=== PATIENT | male | born 1960 | race Caucasian/White ===

== ENCOUNTER 2017-07-16 05:47 | Day surgery (SDC) | payer OTHER ==
[2017-07-08 15:10] VITALS: BMI 28.0
[2017-07-16] MEDS ORDERED: Levofloxacin 500 mg/D5W 100 ml Premix Bag ONE (06:28)
[2017-07-16] MEDS ORDERED: Midazolam HCl 2 mg/2 ml Vial ONE (06:31)
[2017-07-16] MEDS ORDERED: Fentanyl 100 MCG/2 ML VIAL ONE (06:31)
[2017-07-16] MEDS ORDERED: Iothalamate Meglumine 60% 50 ML VIAL FS ONE (07:17)
[2017-07-16] MEDS ORDERED: Propofol 200 MG/20 ML VIAL ONE (07:36)
[2017-07-16] MEDS ORDERED: Succinylcholine Chloride 20 MG/ML 10 ml SYRINGE FS ONE (07:36)
[2017-07-16] MEDS ORDERED: Dexamethasone 20 MG/5 ML VIAL ONE (07:36)
[2017-07-16] MEDS ORDERED: Ondansetron HCl/PF 4 MG/2 ML Vial ONE (07:36)
[2017-07-16] MEDS ORDERED: Esmolol 100 MG/10 ML VIAL ONE (07:36)
[2017-07-16] MEDS ORDERED: Glycopyrrolate 0.2 MG/ML 5 ML SYRINGE ONE (07:36)
[2017-07-16] MEDS ORDERED: Lidocaine 1% PF 5 ML VIAL ONE (07:36)
--- NOTE | 2017-07-16 08:53 | RAD ---
KUB: Comparison: 07-16-17 History: Pre-operative radiograph. History of renal calcifications. FINDINGS: Single view of the abdomen shows a calcification in the right upper quadrant of the abdomen which juana messina represents a gallstone. An inferior vena cava filter is seen. There is a questionable calcifica tion to the left of the L4-5 disc space. This could represent the previously seen left ureteral calc ifications. There are no calcifications seen over the renal shadows. Post-surgical changes are seen in the lumbar spine and left hip. IMPRESSION: Possible visualization of the left ureteral calcification. POS: [facility]
[2017-07-16] MEDS ORDERED: Oxybutynin Chloride 5 MG TAB ONE (08:59)
[2017-07-16] MEDS ORDERED: Phenazopyridine HCl 97.5 MG TABLET ONE ×2 (08:59)
--- NOTE | 2017-07-16 09:34 | OP ---
DATE OF SERVICE: 07/16/2017 PREOPERATIVE DIAGNOSES: 1. Mr. Harvey is a 56-year-old male with history of left midureteral calculi at the level of L4, 7 mm. 2. Left punctate renal lithiasis x3. 3. Right renal lithiasis nonobstructing x2 lower pole punctate, right mid pole linear 3 mm stone, n onobstructive in nature. PROCEDURES: Cystoscopy, bilateral retrograde pyelogram, left ureteroscopy, balloon dilation of left distal ureter, flexible left ureteroscopy, pyeloscopy, laser lithotripsy of left mid ureteral calcu li, basket extraction of stone, 6 x 26 double-J ureteral stent placement with dangler taped to the p sulema. SPECIMEN: Left ureteral stone for chemical analysis. INTRAOPERATIVE FINDINGS: 1. Right retrograde pyelogram without evidence of hydronephrosis or filling defect, prompt excretio n of right collecting system contrast. 2. Left embedded mid ureteral calculi. 3. Minimal BPH. EBL: Minimal. COMPLICATIONS: None apparent. DISPOSITION: Recovery room in stable condition. INDICATIONS FOR THE PROCEDURE AND HISTORY: Mr. Harvey is a 56-year-old male with history of recur rent urolithiasis. I did receive the patient back in 2012 and underwent right ureteroscopy, laser l ithotripsy of a lower pole stone. He subsequently has done well, however, a subsequent workup demon strates left mid ureteral calculi with partial obstruction due to non-progression of stone, desires today for left ureteroscopy, laser lithotripsy. Alternative of the option was discussed with patien t including ESWL and desired to proceed. Moreover, he has a vague right flank pain which began a fe w days ago and a retrograde pyelogram bilaterally was advised. Risks and complications including, b ut not limited to, bleeding, pain, infection, injury to adjacent organs, urosepsis, ureteral renal i njury, stricture formation was reviewed with him in detail and all questions answered to his satisfa ction and he desired to proceed. DESCRIPTION OF THE PROCEDURE: After an informed consent is signed, the patient was taken to the ope rating room, placed in a dorsal lithotomy position with the genital area prepped and draped in the u sume surgical sterile fashion. The left mid ureteral stone was seen at the level of L4. We provide d bilateral PAULIE hose. SCDs and broad-spectrum antibiotics were provided. A 21 Eritrean cystoscope wa s utilized for cystoscopy which demonstrated normal anterior and posterior urethra, mild BPH compone nt nonobstructive in nature were noted. The bladder was entered. We performed a right retrograde p yelogram due to patient's right vague flank pain demonstrating no evidence of hydronephrosis or fill ing defect. There was prompt excretion of the right collecting system. At this time, we performed a left retrograde pyelogram with 1:1 diluted contrast with an open-ended catheter, which demonstrate d a filling defect radiopaque stone at the level of L4 with proximal hydronephrosis. There was some resistance passing the left ureteral guidewire with a 0.35 sensor wire. However, was able to be ne gotiated into the left upper pole. At this time, we proceeded to dilate his intramural ureter with [employer] 4 cm 12-Eritrean apparatus. With adequate pressure, we subsequently desufflated the balloon and a 10 Eritrean dual-lumen access sheath was utilized to pass a second wire into the left u pper pole without difficulty. At this time, an 11/13 x 36 cm navigator was passed to the level of t he stone with ease. The stone was directly visualized with a flexible digital ureteroscope. It moy eared to be embedded into the mucosa and we gently laser lithotripsy this stone rendering it free an d all stone fragments were laser lithotripsied and basket extracted with no further stone nidus appr eciated. There appeared to a wire that was initially placed appeared to demonstrate a component of small submucosal component. Therefore, I did pass my ureteroscope to the level of the renal pelvis and a new wire was placed into the left upper pole collecting system. We subsequently removed the n avigator and the second safety wire. A retrograde pyelogram was repeated demonstrating no evidence of extravasation of contrast. A 6 x 26 double-J ureteral stent was passed without difficulty with p melissa placement confirmed. The stent was left in dangler as there was endoscopic clearance of the s tone. He will follow up with me next for stent pull and dangler. Discharged with [place] 5/ 325 #50, Flomax #7, AZO p.r.n., Colace #30 p.r.n., ciprofloxacin for a course of 7 days, Ditropan 5 mg q.8 hours p.r.n. for bladder spasm.
--- NOTE | 2017-07-16 10:06 | RAD ---
RETROGRADE IVP: Comparison: 05-21-13, KUB 07-16-17 FINDINGS/IMPRESSION: Multiple images from a retrograde IVP were submitted for interpretation. The first image shows a pos sible calcification projecting over the left aspect of the L4-5 region of the lumbar spine. An infer ior vena cava filter is seen. Contrast was initially seen in the right renal collecting system witho ut filling defect and without hydronephrosis. Contrast eventually passed into the left renal collect ing system. There is moderate left hydronephrosis. A double J ureteral stent was eventually placed. The previously seen calcification on the initial image is not definitely seen on the lateral images. IMPRESSION: Status post lithotripsy with placement of left ureteral stent in good position. There is moderate le ft hydronephrosis. POS: [facility]
== END 2017-07-16 10:00 | disposition home or self-care (01) ==
LOC: SDC 05:47
PROVIDERS: ATTEND Urology
PROC: 0T768DZ Dilation of Right Ureter with Intraluminal Device, Via Natural or Artificial Opening Endoscopic (ICD-10-PCS; principal; 2017-07-16)
PROC: 0TF38ZZ Fragmentation in Right Kidney Pelvis, Via Natural or Artificial Opening Endoscopic (ICD-10-PCS; principal; 2017-07-16)
DX: N20.2 Calculus of kidney with calculus of ureter (principal); N40.0 Benign prostatic hyperplasia without lower urinary tract symptoms; Z88.0 Allergy status to penicillin; Z88.2 Allergy status to sulfonamides; Z79.899 Other long term (current) drug therapy; Z98.49 Cataract extraction status, unspecified eye; Z98.1 Arthrodesis status; Z98.890 Other specified postprocedural states; Z96.0 Presence of urogenital implants; Z96.649 Presence of unspecified artificial hip joint; Z87.891 Personal history of nicotine dependence; Z87.442 Personal history of urinary calculi; Z82.49 Family history of ischemic heart disease and other diseases of the circulatory system
CPT/HCPCS: 74000; 74420; 82365; 88300; C1758; C1769; J1100; J1956; J2001; J2250; J2405; J2704; J3010; Q9961

== ENCOUNTER 2017-12-15 10:03 | Outpatient (CLI) | payer OTHER ==
[2017-12-15 10:45] LABS: Bilirubin Negative (Negative); Blood, Urine Negative (Negative); Clarity CLEAR (Clear); Glucose, Urine (Dipstick) Negative (Negative); Leukocyte Trace (Negative); Nitrite Negative (Negative); Protein, Urine (Dipstick) Negative (Neg-Trace); Specific Gravity, Urine 1.022 (1.002-1.036); Urobilinogen 0.2 mg/dL (0.2-1.0); pH, Urine 5.5 (5.0-9.0)
[2017-12-15 10:47] LABS: Bacteria/HPF None Seen HPF (None Seen); Hyaline Casts/LPF 0-3 HYALINE CAST LPF (0-3 Hyaline); Pathc Cast-AUWi Flag 0.67 (0-2.49); RBC/HPF None Seen HPF (0-3); Squamous Epithelial None Seen HPF (0-3)
[2017-12-15 10:49] LABS: Anion Gap 11 mmol/L (10-20); BUN (Urea Nitrogen) 14 mg/dL (8.4-25.7); Calc. Creatinine Clearance 0 mL/min (70-130); Calcium 9.5 mg/dL (7.8-10.44); Carbon Dioxide 30 mmol/L (22-29); Chloride 104 mmol/L (98-107); Estimated GFR-MDRD Greater than 90; Glucose 121 mg/dL (70-105); Potassium 4.1 mmol/L (3.5-5.1); Sodium 141 mmol/L (136-145)
--- NOTE | 2017-12-15 13:10 | RAD ---
ABDOMEN 1 VIEW: Date: 12/15/17 HISTORY: Calculus of kidney. COMPARISON: Radiograph of 07/16/17. FINDINGS: IVC filter is in place. There are small calculi projecting over the right renal shadow at superior an d inferior poles. The previously noted calcification projecting over the left ureter is not appreciat ed on this examination. There is fusion hardware of the lumbar spine. Left hip arthroplasty. Right upper quadrant surgical clips. IMPRESSION: 1. Right-sided renal calculi and possible small left renal calculus. 2. Previously noted left ureteral calculus not appreciated on today's examination, likely post treat ment. 3. Small left renal calculi. POS: [facility]
--- NOTE | 2017-12-15 13:13 | ULT ---
ULTRASOUND BILATERAL RENAL STANDARD: Date: 12/15/17 HISTORY: Calculi. COMPARISON: Abdomen radiographs from same date. Renal ultrasound dated 03/13/17. FINDINGS: Right kidney measures 11.6 x 7.2 x 6.3 cm. Left kidney measures 11.9 x 7.3 x 5.9 cm. No hydronephrosi s. There is a small cyst superior pole right kidney which is exophytic measuring up to 1.1 cm. Small right-sided renal calculi. There are nonobstructive. Urinary bladder is unremarkable. Left kidney measures 11.9 x 5.9 x 7.3 cm with a cyst measuring up to 1.6 cm. IMPRESSION: 1. Small bilateral renal cysts. 2. Right-sided renal calculi. 3. No evidence of obstructive uropathy. POS: [facility]
== END 2017-12-15 10:04 | disposition home or self-care (01) ==
LOC: ULT 10:03
PROVIDERS: ATTEND Urology
DX: Z12.5 Encounter for screening for malignant neoplasm of prostate (principal); N20.0 Calculus of kidney; R35.0 Frequency of micturition; N28.1 Cyst of kidney, acquired
CPT/HCPCS: 74018; 76770; 80048; 81003; 81015; 87086; G0103

== ENCOUNTER 2018-12-15 12:23 | Outpatient (CLI) | payer OTHER ==
[2018-12-15 13:45] LABS: Mean Corpuscular HGB CONC 31.4 g/dL (32.0-36.0); Mean Corpuscular Volume 85.8 fL (78.0-98.0); Mean Platelet Volume 6.6 fL (7.4-10.4); Platelet Count 209 thou/uL (130-400); RBC Distribution Width 13.6 % (11.5-14.5); Red Blood Cell (RBC) Count 6.67 mill/uL (4.70-6.10); White Blood Cell (WBC) Count 11.6 thou/uL (4.8-10.8)
[2018-12-15 14:05] LABS: Bilirubin Small (Negative); Blood, Urine Negative (Negative); Clarity CLEAR (Clear); Glucose, Urine (Dipstick) Negative (Negative); Leukocyte Negative (Negative); Nitrite Negative (Negative); Protein, Urine (Dipstick) Negative (Neg-Trace); Specific Gravity, Urine 1.022 (1.002-1.036); Urobilinogen 0.2 mg/dL (0.2-1.0); pH, Urine 5.5 (5.0-9.0)
[2018-12-15 14:17] LABS: Anion Gap 15 mmol/L (10-20); BUN (Urea Nitrogen) 20 mg/dL (8.4-25.7); Calc. Creatinine Clearance 0 mL/min (70-130); Calcium 8.5 mg/dL (7.8-10.44); Carbon Dioxide 20 mmol/L (22-29); Chloride 103 mmol/L (98-107); Estimated GFR-MDRD 52; Glucose 83 mg/dL (70-105); Potassium 3.8 mmol/L (3.5-5.1); Sodium 134 mmol/L (136-145)
[2018-12-15 14:45] LABS: Bacteria/HPF None Seen HPF (None Seen); Pathc Cast-AUWi Flag 0.58 (0-2.49)
[2018-12-15 15:02] LABS: Hyaline Casts/LPF 0-3 HYALINE CAST LPF (0-3 Hyaline)
[2018-12-15 15:08] LABS: PTT 28.5 SEC (22.9-36.1); Prothrombin Time 13.2 SEC (12.0-14.7)
== END 2018-12-15 12:24 | disposition home or self-care (01) ==
LOC: LABBT 12:23
PROVIDERS: ATTEND Urology
DX: Z01.818 Encounter for other preprocedural examination (principal); N20.1 Calculus of ureter
CPT/HCPCS: 80048; 81001; 85027; 85610; 85730; 87086; 93005; 93010

== ENCOUNTER 2018-12-16 05:40 | Day surgery (SDC) | payer OTHER ==
[2018-12-15 12:58] VITALS: BMI 29.5
[2018-12-16] MEDS ORDERED: Levofloxacin 500 mg/D5W 100 ml Premix Bag ONE (06:14)
[2018-12-16] MEDS ORDERED: Iothalamate Meglumine 60% 50 ML VIAL FS ONE (07:12)
[2018-12-16] MEDS ORDERED: Fentanyl 100 MCG/2 ML VIAL ONE (07:12)
[2018-12-16] MEDS ORDERED: Phenazopyridine HCl 97.5 MG TABLET ONE (08:07)
--- NOTE | 2018-12-16 08:43 | OP ---
DATE OF PROCEDURE: 12/16/2018 PREOPERATIVE DIAGNOSES: 1. A 58-year-old male with history of recurrent kidney stone. 2. Right renal colic due to mid ureteral calculi, 6 mm at the level of mid SI joint. 3. Bilateral punctate renal lithiasis. POSTOPERATIVE DIAGNOSES: 1. A 58-year-old male with history of recurrent kidney stone. 2. Right renal colic due to mid ureteral calculi, 6 mm at the level of mid SI joint. 3. Bilateral punctate renal lithiasis. PROCEDURES PERFORMED: Cystoscopy, right retrograde, 6 x 26 double-J ureteral stent with distal tail in situ. ANESTHESIA: LMA. COMPLICATIONS: None apparent. INTRAOPERATIVE FINDINGS: 1. Moderate BPH with high median bar. No intravesical median lobe. 2. Obstructing right mid ureteral calculi. SPECIMEN: None. COMPLICATIONS: None. INDICATIONS FOR PROCEDURE AND HISTORY: Mr. Harvey is a 58-year-old male, with history of recurrent urolithiasis. Walk-in appointment provided was yesterday's presented to [facility] due to right flank pain, found to have 6 mm right mid ureteral calculi with hydronephrosis. The patient has had difficulty tolerating p.o. due to pain and nausea. Therefore, stent advised. His culture has not finalized, advised regarding stent placement, ureteroscopy, laser lithotripsy in a staged manner. Review of lab this morning demonstrates prelim urine culture at [facility] negative. However, he has had a low-grade fever last night of 100.1. Levaquin was provided by on-call service. Preoperative antibiotics provided. Risks and complications and indications for the procedure were reviewed with him in detail including, but not limited to, bleeding, pain, infection, injury to adjacent organs, urosepsis, stricture formation and expected secondary procedure was reviewed with the patient in detail and he desired to proceed. DESCRIPTION OF PROCEDURE: After an informed consent was signed, the patient was taken to the operating room, placed in a dorsal lithotomy position with the genital area prepped and draped in the usual surgical sterile fashion. Bilateral PAULIE hose SCDs and broad-spectrum antibiotics were provided. A 21-Nepalese cystoscope was utilized for cystoscopy, which demonstrated normal anterior and posterior urethra. Prostatic urethra demonstrated moderate BPH with lateral lobes co-opting with high median bar. Bladder was entered, which demonstrated no evidence of bladder calculi. The UOs were identified in normal orthotopic position. At this time, a 5-Nepalese open-ended catheter was utilized for retrograde pyelogram using 1:1 diluted contrast. A preoperative KUB demonstrated no obvious calcification. A retrograde pyelogram demonstrated obstructing ureteral stone at the mid SI joint. It was difficult to opacify the ureter proximal to this, however able to with subsequent injection of contrast. A 0.35 Sensor wire was negotiated into the right mid to upper pole. A 6 x 26 double-J ureteral stent was able to be passed without difficulty and he tolerated the procedure well. The patient is discharged with Flomax 0.4 mg, Colace p.r.n., Levaquin 500 mg one p.o. daily until repeat culture can be reviewed, AZO over the counter p.r.n. The patient does have prescription for narcotics at home, provided by the emergency room. He will see me this Friday for reassessment and planned ureteroscopy, laser lithotripsy next week pending review of urine culture. Job ID: [id number]
--- NOTE | 2018-12-16 09:09 | RAD ---
AP SUPINE ABDOMINAL RADIOGRAPH: DATE: 12/16/2018. HISTORY: Preoperative evaluation. COMPARISON: 12/15/2017. FINDINGS: IVC filter is again noted in place to the right of midline at the L1-2 level. Surgical clips overlie the right upper quadrant. There are intradiskal cage devices overlying the lumbosacral junction. P ostsurgical changes left hip are noted. There is a calcification overlying the right upper quadrant. The renal shadows are obscured, but thi s likely overlies the superior pole of the right kidney and likely attributable to a renal calculus. A punctate calcification overlies the expected location of the left renal shadow in similar position to prior study 1 day ago and also may represent a left ureteral calculus. Bowel gas pattern is nons pecific. There has been no other interval change. IMPRESSION: Right nephrolithiasis with questionable left nephrolithiasis. POS: [facility]
--- NOTE | 2018-12-16 09:13 | RAD ---
RETROGRADE UROGRAM: DATE: 12/16/2018. HISTORY: Right ureteral stent placement. COMPARISON: AP abdominal radiograph from 12/16/2018. FINDINGS: IVC filter is again noted in place with surgical clips overlying the right upper quadrant and postsur gical changes lower lumbar spine as well as postsurgical changes left hip. Again noted is calcification overlying the expected location of the right renal shadow likely related to a renal calculus. Initial image demonstrates a guidewire in place with contrast opacification of the mid right ureter. The final image demonstrates a double-pigtail right ureteral stent in place w ith the proximal portion overlying the expected location right renal collecting system and distal por tion overlying the urinary bladder. IMPRESSION: Right ureteral stent placement. Correlation with intraoperative findings is recommended. POS: [facility]
[2018-12-16] MEDS ORDERED: Ondansetron PF 4 MG/2 ML Vial ONE (11:20)
[2018-12-16] MEDS ORDERED: Rocuronium Bromide 10 MG/ML (10ML VIAL) ONE (11:20)
[2018-12-16] MEDS ORDERED: ePHEDrine 50 MG/ML VIAL ONE (11:20)
[2018-12-16] MEDS ORDERED: Lidocaine 1% PF 5 ML VIAL ONE (11:20)
[2018-12-16] MEDS ORDERED: Glycopyrrolate 0.2 MG/ML 5 ML SYRINGE ONE (11:20)
[2018-12-16] MEDS ORDERED: Dexamethasone 20 MG/5 ML VIAL ONE (11:20)
[2018-12-16] MEDS ORDERED: PROPOFOL 200 MG/20 ML VIAL ONE (11:20)
== END 2018-12-16 09:45 | disposition home or self-care (01) ==
LOC: SDC 05:40
PROVIDERS: ATTEND Urology
PROC: 0T768DZ Dilation of Right Ureter with Intraluminal Device, Via Natural or Artificial Opening Endoscopic (ICD-10-PCS; principal; 2018-12-16)
DX: N20.1 Calculus of ureter (principal); N40.0 Benign prostatic hyperplasia without lower urinary tract symptoms; Z90.49 Acquired absence of other specified parts of digestive tract; Z96.649 Presence of unspecified artificial hip joint; Z87.891 Personal history of nicotine dependence; Z88.0 Allergy status to penicillin; Z88.2 Allergy status to sulfonamides; Z88.5 Allergy status to narcotic agent; Z79.899 Other long term (current) drug therapy; Z98.890 Other specified postprocedural states
CPT/HCPCS: 74018; 74420; C1758; C1769; J1100; J1956; J2001; J2405; J2704; J3010; J3490; Q9961

== ENCOUNTER 2018-12-23 05:56 | Day surgery (SDC) | payer OTHER ==
[2018-12-22 11:12] VITALS: BMI 29.5
[2018-12-23] MEDS ORDERED: Levofloxacin 500 mg/D5W 100 ml Premix Bag ONE (06:26)
[2018-12-23] MEDS ORDERED: Iothalamate Meglumine 60% 50 ML VIAL FS ONE (06:45)
[2018-12-23] MEDS ORDERED: Famotidine/PF 20 mg/2ml Vial ONE (06:52)
[2018-12-23] MEDS ORDERED: Fentanyl 100 MCG/2 ML VIAL ONE ×3 (06:52→13:31)
[2018-12-23 07:10] LABS: #Eosinphils 0.2 thou/uL (0.0-0.7); #Lymphocytes 1.2 thou/uL (1.20-3.40); #Monocytes 0.8 thou/uL (0.11-0.59); #Neutrophils 7.8 thou/uL (1.40-6.50); %Basophils 0.2 % (0.0-1.0); %Eosinophils 2.2 % (0.0-10.0); %Lymphocytes 12.3 % (21.0-51.0); %Monocytes 8.3 % (0.0-10.0); Hemoglobin 19.4 g/dL (14.0-18.0); Mean Corpuscular HGB CONC 31.4 g/dL (32.0-36.0); Mean Corpuscular Hemoglobin 26.3 pg (27.0-31.0); Mean Corpuscular Volume 83.7 fL (78.0-98.0); Mean Platelet Volume 6.4 fL (7.4-10.4); Platelet Count 287 thou/uL (130-400); RBC Distribution Width 14.3 % (11.5-14.5); White Blood Cell (WBC) Count 10.1 thou/uL (4.8-10.8)
[2018-12-23 07:15] LABS: Anion Gap 13 mmol/L (10-20); BUN (Urea Nitrogen) 18 mg/dL (8.4-25.7); Calc. Creatinine Clearance 105 mL/min (70-130); Calcium 9.3 mg/dL (7.8-10.44); Carbon Dioxide 25 mmol/L (22-29); Chloride 104 mmol/L (98-107); Estimated GFR-MDRD 76; Glucose 92 mg/dL (70-105); Potassium 4.1 mmol/L (3.5-5.1); Sodium 138 mmol/L (136-145)
--- NOTE | 2018-12-23 07:44 | RAD ---
KUB: Date: 12/23/18 COMPARISON: 12/16/18. HISTORY: Preprocedure radiograph prior to cystography. FINDINGS: Single view of the abdomen shows a nonspecific, nonobstructive bowel gas pattern. A right-sided doubl e-J ureteral stent is seen in good position. An inferior vena cava filter is seen. Cholecystectomy cl ips are seen. There is a small calcification projecting over the right kidney measuring 4-5 mm in siz e. No calcifications project over the left kidney or along the stent. IMPRESSION: Right renal calcification. POS: [facility]
[2018-12-23] MEDS ORDERED: Oxybutynin 5 MG TAB ONE (09:54)
--- NOTE | 2018-12-23 09:54 | RAD ---
RETROGRADE IVP: Comparison: 12-16-18, KUB 12-23-18 FINDINGS/IMPRESSION: A single limited intraoperative view from retrograde IVP was submitted for interpretation. There is a right sided double J ureteral stent which appears in good position. The calcification seen on the KU B overlying the right renal shadow cannot be definitely seen. An inferior vena cava filter is seen. POS: [facility]
[2018-12-23] MEDS ORDERED: Phenazopyridine HCl 97.5 MG TABLET ONE (09:56)
--- NOTE | 2018-12-23 10:59 | OP ---
DATE OF PROCEDURE: 12/23/2018 PREOPERATIVE DIAGNOSES: 1. A 58-year-old male with history of recurrent kidney stone, presented with right intractable mid ureteral calculi, 6 mm at the mid SI joint. 2. Bilateral punctate renal lithiasis on CT scan from [facility]. 3. Recent KUB demonstrating right ureteral stent in good position with right upper pole 4 to 5 mm calcific density. POSTOPERATIVE DIAGNOSES: 1. A 58-year-old male with history of recurrent kidney stone, presented with right intractable mid ureteral calculi, 6 mm at the mid SI joint. 2. Bilateral punctate renal lithiasis on CT scan from [facility]. 3. Recent KUB demonstrating right ureteral stent in good position with right upper pole 4 to 5 mm calcific density. PROCEDURES PERFORMED: Cystoscopy, right retrograde pyelogram, 6 x 26 double-J ureteral stent exchange with distal tail in-situ, flexible and rigid ureteroscopy, pyeloscopy, laser lithotripsy of ureteral and renal stone, and basket extraction of stone fragments. ANESTHESIA: General. SPECIMEN: Stone for chemical analysis and gross. INTRAOPERATIVE FINDINGS: 1. Has previous moderate BPH with high median bar. No intravesical median lobe. 2. Right mid ureteral calculi obstructing impacted with mucosal overgrowth. 3. Right upper pole calyceal stone impacted. INDICATIONS FOR PROCEDURE AND HISTORY: Mr. Harvey is a 58-year-old male with history of recurrent kidney stone. He was provided a walk-in appointment as he presented to [facility] due to intractable right flank pain, found to have a 6 mm mid ureteral calculi with hydronephrosis. He underwent ureteral stent placement, and was observed that as he initially presented with history of fever. Final urine culture is negative. He has been on prophylactic antibiotic therapy and presents today for definitive ureteroscopy laser lithotripsy. He has been fully informed regarding risks and complications and indications for the procedure. Risks and complications including, but not limited to, bleeding, pain, infection, injury to adjacent organs, urosepsis, stricture formation, possible further surgery, PE, DVT, and perioperative morbidity. He presented with preop labs demonstrating elevated hematocrit. This is probably multifactorial as he has been on testosterone-Depo injection from an outlying clinic from a physician executive assistant to president. He states that this was for fatigue. However, preop labs demonstrated elevated H and H and I informed the patient regarding close followup with the provider that gave him his testosterone. I did recheck his H and H today demonstrating that it is further elevated due to further elevated hematocrit of 61 and his prior hematocrit was 57. Previously, his hematocrit was 44. I informed the patient regarding close monitoring of his H and H along with hormone profile labs as this is provided at outside facility. Recheck H and H intraoperatively was obtained after fluid resuscitation, as he has had decreased oral intake as well. He declines deferring surgery DESCRIPTION OF PROCEDURE: After an informed consent was signed, the patient was taken to the operating room, placed in dorsal lithotomy position with the genital area prepped and draped in the usual surgical sterile fashion. A 21-Macanese cystoscope was utilized for cystoscopy, which demonstrated normal anterior urethra. Again, noted is moderate BPH, bilobar hyperplasia with high median bar. The bladder was entered, which demonstrating AZO-Pyridium tinged urine. The previous ureteral stent was removed to the level of the meatus. The stent was removed at the level of the meatus. I tried to pass a 0.35 Sensor wire; however, I was only able to pass it beyond the proximal coil to the proximal ureter. There was some resistance removing the ureteral stent; however, it was removed complete. We tried to pass the wire up into the upper collecting system. However, there was some resistance at the UPJ level. Therefore, I did transition back to a rigid cystoscope and using an open-ended catheter, we fed the pre-existing wire to the level of the proximal ureter. I did feel the area of the stone that was impacted. However, I would pass the open-ended catheter to the level of the proximal ureter for retrograde pyelogram. There was some extravasation of contrast from the UPJ; however, I was able to subsequently negotiate the current wire safely into the renal pelvis. There was resistance; however, passed to the renal pelvis. We subsequently passed the wire into the right upper pole. We subsequently performed a retrograde pyelogram confirming proper placement of the wire in the renal collecting system. At this time, I transitioned to a rigid ureteroscope. The UO was passively dilated from having an indwelling ureteral stent and I was able to see the stone in the mid SI joint level stone. There was significant bullous edema surrounding the ureteral stone and it was impacted and adherent to the mucosa. Using 200 micron laser fiber, we laser lithotripsied the stone in this setting. We lasered the stone off the mucosa and render it free and subsequently lasered the stone complete and removed with basket extraction. There was a submucosal course of the wire. Therefore, we passed the ureteroscope into the true lumen and subsequently passed the wire to the level of the proximal ureter. At this time, I transitioned to a cystoscope. Then, using a cystoscope with an open-ended catheter, we placed this working wire through the true lumen into the right upper pole without difficulty at this time. I did perform a retrograde pyelogram confirming proper placement of the new working and safety wire. The prior wire was then subsequently removed. As he presents with history of right renal calculi as well, has had concern regarding possibly stone impacting the UPJ, flexible ureteroscope was performed. A second safety wire using a 10-Macanese dual-lumen access sheath was placed without difficulty. Retrograde pyelogram with a dual-lumen access sheath failed to demonstrate further extravasation of contrast. With the safety and working wire placed in-situ in proper position, we passed an 11/13-Macanese x 46 cm navigator without any issues to the level of the proximal ureter UPJ. I surveyed the UPJ, which demonstrated no evidence of mucosa defect per se. I did not see an obvious ureteral perforation of concern. At this time, the flexible ureteroscope was advanced and I did see the stone in the upper pole. I did not see any further stone nidus. The right upper pole stone appeared to be embedded in the calyx and this was rendered free, that was approximately 5 or 6 mm in size. I did laser the stone, rendered it free and basket extraction of the renal calculi was performed. What remained in-situ were dustlike stone debris, which he should pass without significant issues. I again surveyed the ureter, which demonstrated no evidence of ureteral mucosa, perforation or trauma of concern. Staging of the previous ureteral impacted stone site demonstrated bullous edema with no defect. A 6 x 26 double-J ureteral stent was replaced with distal tail in-situ. I did place a 16-Macanese Cintron catheter as he has been provided IV fluids aggressively as he appears to be dehydrated along with thrombocytosis present from hormone replacement. A recheck H and H intraoperatively demonstrated normalization of hematocrit to 51. Therefore, I will observe and caution the patient to follow up with his provider, providing him with testosterone injection. I do not recommend the testosterone for this patient. The patient was discharged with Levaquin 500 mg 1 p.o. b.i.d. for 5 days, then 1 p.o. a.m. of appointment January 07 for cysto stent pull. [employer] 5/325 #30 one to two p.o. q.6 to 8 hours p.r.n., Flomax #30, Colace b.i.d., and Pyridium 200 mg 1 p.o. q.8 hours p.r.n. for dysuria. Job ID: [id number] [facility]
[2018-12-23] MEDS ORDERED: Morphine 4 MG/ML VIAL ONE (13:26)
[2018-12-23] MEDS ORDERED: Metoclopramide HCl 10 MG/2 ML VIAL ONE (13:42)
[2018-12-23] MEDS ORDERED: Rocuronium Bromide 10 MG/ML (10ML VIAL) ONE (13:42)
[2018-12-23] MEDS ORDERED: Glycopyrrolate 0.2 MG/ML 5 ML SYRINGE ONE (13:42)
[2018-12-23] MEDS ORDERED: ePHEDrine 50 MG/ML VIAL ONE (13:42)
[2018-12-23] MEDS ORDERED: Ondansetron PF 4 MG/2 ML Vial ONE (13:42)
[2018-12-23] MEDS ORDERED: PROPOFOL 200 MG/20 ML VIAL ONE (13:42)
[2018-12-23] MEDS ORDERED: Lidocaine 1% PF 5 ML VIAL ONE (13:42)
[2018-12-23] MEDS ORDERED: PHENYLEPHRINE-NS 100 MCG/ML 10 ML SYRINGE ONE (13:42)
== END 2018-12-23 13:45 | disposition home or self-care (01) ==
LOC: SDC 05:56
PROVIDERS: ATTEND Urology
PROC: 0TF38ZZ Fragmentation in Right Kidney Pelvis, Via Natural or Artificial Opening Endoscopic (ICD-10-PCS; principal; 2018-12-23)
PROC: 0T768DZ Dilation of Right Ureter with Intraluminal Device, Via Natural or Artificial Opening Endoscopic (ICD-10-PCS; principal; 2018-12-23)
DX: N13.2 Hydronephrosis with renal and ureteral calculous obstruction (principal); N40.0 Benign prostatic hyperplasia without lower urinary tract symptoms; Z87.891 Personal history of nicotine dependence; Z88.0 Allergy status to penicillin; Z88.2 Allergy status to sulfonamides; Z88.5 Allergy status to narcotic agent; Z79.2 Long term (current) use of antibiotics; Z79.899 Other long term (current) drug therapy; Z98.890 Other specified postprocedural states
CPT/HCPCS: 36415; 74018; 74420; 80048; 82365; 85025; 88300; C1758; C1769; J0131; J1956; J2001; J2270; J2405; J2704; J2765; J3010; J3490; Q9961; S0028

== ENCOUNTER 2019-05-03 12:41 | Outpatient (CLI) | payer OTHER ==
--- NOTE | 2019-05-03 12:57 | RAD ---
XR Abdomen 1 View/KUB 2 views provided CLINICAL INDICATION: Urolithiasis, follow-up FINDINGS: Lung bases are clear. Prior calcification of the region of the right renal shadow, superiorly is not redemonstrated. There is punctate calcific dictation overlying the lower pole of the right renal shadow. Prior right ureteral catheter has been removed. IVC filter remains. There are metallic clips at the r ight upper quadrant. No acute osseous pathology. IMPRESSION: 1. Punctate calcific density overlying lower pole right renal shadow. 2. Interval removal of prior ureteral stent, on the right, with resolution of prior superior pole ca lculus.. Transcribed Date/Time: 05/03/2019 1:36 PM
--- NOTE | 2019-05-03 13:42 | ULT ---
RENAL ULTRASOUND: DATE: 05/03/2019 COMPARISON: 12/15/2017. HISTORY: Renal calculi, frequent micturition. TECHNIQUE: Multiplanar grayscale sonographic imaging of the kidneys and urinary bladder obtained. FINDINGS: The right kidney measures 11.8 cm in craniocaudal dimension and demonstrates a cortical thickness of approximately 1.6 cm. There is an 8 mm echogenic focus within the mid pole of the right kidney. This does not demonstrate significant shadowing and thus is a nonspecific finding. It could represent a small stone or a structure of fat echogenicity. There is a probable small cyst in the lower pole of the right kidney measuring in the 1.3 cm range. There is an exophytic cyst in the midpole of the r ight kidney measuring 1.2 cm. No solid renal mass noted on the right and no right-sided hydronephrosis. There is a 2.9 cm cyst in the upper pole the left kidney. Left kidney measures 10.8 cm in craniocauda l dimension. No discrete renal mass, stone, or hydronephrosis noted on the left. Prevoid urinary bladder volume is 155 mL and postvoid urinary bladder volume is 4 mL. Prostate gland is heterogeneous and measures approximately 4.6 x 4.0 x 4.0 cm. IMPRESSION: Renal ultrasound as detailed above. No hydronephrosis. Questionable stone midpole right kidney. Plephill hernandez see above discussion. Transcribed Date/Time: 05/03/2019 1:54 PM
== END 2019-05-03 12:42 | disposition home or self-care (01) ==
LOC: BICULT 12:41
PROVIDERS: ATTEND Urology
DX: N20.0 Calculus of kidney (principal); R35.0 Frequency of micturition; N28.89 Other specified disorders of kidney and ureter
CPT/HCPCS: 36415; 74018; 76770; 80048; 81001; 84270; 84403; 85014; 85018; G0103

== ENCOUNTER 2020-01-07 12:48 | Outpatient (CLI) | payer OTHER ==
--- NOTE | 2020-01-07 14:38 | MRI ---
MRI OF THE LEFT HIP WITHOUT CONTRAST: 01/07/20 HISTORY: Pain. Hip replacement. COMPARISON: Reference made to hip radiograph, 11/29/19. FINDINGS: BONES: Discectomy change at L5-S1. No hardware complication. No SI joint widening or significant SI joint ed griselda. There is no acute fracture or malalignment. The obturator rings are intact. Mild degenerative disease of each of the symphysis. There is a left hip arthroplasty in place with small adjacent fluid collection extending along the gr eater trochanter measuring 13 mm in transverse with AP dimension of 2.5 cm and craniocaudal length of 5 cm. TENDONS: Iliopsoas tendon is intact. The common hamstring and semimembranosus tendons are intact. Quadriceps t endons are intact. Evidence of chronic tearing of the left gluteus medius and minimus tendons from the greater trochante r. MUSCLES: The muscle signal and bulk is normal without significant atrophy on the right, though there is mild a trophy of the superior fibers of the left gluteus adam. There is also some mild interstitial atrop hy of the left gluteus medius and minimus muscles. INTRAPELVIC SOFT TISSUES: Relatively unremarkable. IMPRESSION: 1. Intact left hip arthroplasty with small fluid collection along the greater trochanter. 2. 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 3. Mild atrophy of the superior fibers of the gluteus adam muscle on the left. 4. No significant stress edema of the left acetabulum. POS: [facility]
== END 2020-01-07 12:49 | disposition home or self-care (01) ==
LOC: BICMRI 12:48 → TBSIIMAG 12:49
PROVIDERS: ATTEND Family Medicine
DX: M70.72 Other bursitis of hip, left hip (principal); M25.552 Pain in left hip; G89.4 Chronic pain syndrome; Z96.642 Presence of left artificial hip joint; S76.012A Strain of muscle, fascia and tendon of left hip, initial encounter; M62.552 Muscle wasting and atrophy, not elsewhere classified, left thigh

== ENCOUNTER 2020-04-19 14:44 | Outpatient (CLI) | payer OTHER ==
--- NOTE | 2020-04-19 15:27 | CT ---
CT abdomen and pelvis noncontrast HISTORY: Renal stone. Left flank pain. FINDINGS: There is moderate distention of the left renal collecting system and ureter to the level of an oval calculus in the mid ureter at the lumbosacral junction measuring up to 0.4 cm diameter by 0.6 cm length. The left ureter beyond this point is decompressed. There is subtle stranding within th e left retroperitoneal fat around the kidney and proximal ureter. At least 4 additional tiny calcifications are present within left renal collecting structures. The right renal collecting system and ureter are decompressed. At least 6 calcifications are present within the right renal calyces, measuring up to 0.5 cm greatest diameter. Postoperative changes of the lumbar spine and gallbladder fossa are apparent. IVC filter is in place. Lack of contrast limits evaluation of the soft tissues. Cystic lesions arise from the cortex of each kidney, measuring up to 2.2 cm greatest diameter at the lateral cortex of the left kidney. Scattered diverticula arise from the colon without adjacent inflammation. There are degenerative waterman ges of the lumbar spine. IMPRESSION : Partial obstruction at a 6 mm x 4 mm mid left ureteral calculus. Additional smaller nonobstructing bilateral renal calculi. Renal cysts. IVC filter. Diverticulosis. No evidence of diverticulitis.
== END 2020-04-19 14:45 | disposition home or self-care (01) ==
LOC: CT 14:44
PROVIDERS: ATTEND Urology
DX: N20.2 Calculus of kidney with calculus of ureter (principal); R10.9 Unspecified abdominal pain; N28.1 Cyst of kidney, acquired; K57.30 Diverticulosis of large intestine without perforation or abscess without bleeding
CPT/HCPCS: 36415; 74176; 80048; 81001; 87086

== ENCOUNTER 2020-04-20 10:28 | Outpatient (CLI) | payer OTHER ==
[2020-04-20 14:01] LABS: INR-International Normal Ratio 0.9; Prothrombin Time 12.6 sec (12.0-14.7)
[2020-04-20 14:02] LABS: PTT 27.5 sec (22.9-36.1)
[2020-04-20 14:20] LABS: #Eosinphils 0.1 thou/uL (0.0-0.7); #Monocytes 0.3 thou/uL (0.11-0.59); #Neutrophils 4.6 thou/uL (1.40-6.50); %Basophils 0.4 % (0.0-1.0); %Lymphocytes 16.2 % (21.0-51.0); %Monocytes 5.2 % (0.0-10.0); %Neutrophils 77.2 % (42.0-75.0); Hemoglobin 16.4 g/dL (14.0-18.0); Mean Corpuscular HGB CONC 32.8 g/dL (32.0-36.0); Mean Corpuscular Hemoglobin 28.7 pg (27.0-31.0); Mean Corpuscular Volume 87.5 fL (78.0-98.0); Mean Platelet Volume 7.1 fL (7.4-10.4); Platelet Count 229 thou/uL (130-400); RBC Distribution Width 13.5 % (11.5-14.5); Red Blood Cell (RBC) Count 5.73 mill/uL (4.70-6.10)
[2020-04-21 16:07] LABS: SARS-CoV-2 MS2 Positive; SARS-CoV-2 N Gene Negative; SARS-CoV-2 S Gene Negative; SARS-CoV-2 orf1ab Negative
--- NOTE | 2020-04-24 10:10 | EKG ---
Test Reason : FOR 04/24 Blood Pressure : / mmHG Vent. Rate : 098 BPM Atrial Rate : 098 BPM P-R Int : 146 ms QRS Dur : 090 ms QT Int : 342 ms P-R-T Axes : 070 066 034 degrees QTc Int : 436 ms Normal sinus rhythm Normal ECG When compared with ECG of 15-DEC-2018 13:22, T wave inversion less evident in Inferior leads Confirmed by ALEX DOWNS (2) on 04/24/2020 10:10:33 AM Referred By: MARCO Confirmed By:ALEX DOWNS
== END 2020-04-20 10:29 | disposition home or self-care (01) ==
LOC: LABBT 10:28
PROVIDERS: ATTEND Urology
DX: Z01.818 Encounter for other preprocedural examination (principal); Z11.59 Encounter for screening for other viral diseases; Z12.5 Encounter for screening for malignant neoplasm of prostate; N20.0 Calculus of kidney; N40.1 Benign prostatic hyperplasia with lower urinary tract symptoms; R35.0 Frequency of micturition; R10.9 Unspecified abdominal pain
CPT/HCPCS: 85025; 85610; 85730; 87635; 93005; 93010; U0003

== ENCOUNTER 2020-04-24 05:54 | Day surgery (SDC) | payer OTHER ==
[2020-04-20 12:34] VITALS: BMI 28.3
[2020-04-24] MEDS ORDERED: Iopamidol 50 ML FS ONE (07:12)
[2020-04-24] MEDS ORDERED: Levofloxacin 500 mg/D5W 100 ml Premix Bag ONE (07:23)
--- NOTE | 2020-04-24 07:33 | RAD ---
Abdomen one view HISTORY: Ureteral calculus. COMPARISON: CT 04/19/2020. FINDINGS: Visualized bowel gas pattern is nonspecific. Small calcifications project over each renal shadow, cor relating with recent CT exam. The lumbosacral junction, where left ureteral calculus was seen on the prior study, no left retroperi toneal calcification is evident. A small lobular vertically oriented calcification now projects over the left lower sacrum, at the expected location of the distal left ureter. Postoperative changes of the right upper quadrant, lower lumbar spine, and left hip are again demonst rated. Metallic filter overlies the inferior vena cava. IMPRESSION : Left ureteral calculus has descended to the level of the left lower sacrum. Bilateral renal calculi.
[2020-04-24] MEDS ORDERED: Fentanyl 100 MCG/2 ML VIAL ONE (08:45)
[2020-04-24] MEDS ORDERED: Lidocaine 2% Jelly 5 ML TUBE ONE (08:45)
--- NOTE | 2020-04-24 09:53 | RAD ---
Exam: Intraprocedure fluoroscopy for retrograde IVP. Stent placement. COMPARISON: 12/23/2018 FINDINGS: Intraprocedure fluoroscopy was provided for Dr. Radha lou. A total of 8 images demonstrate retrograde opacification of the left and right ureter and intrarenal collecting system. A double pigtail left ureteral stent is placed. Incidental IVC filter and metallic cage at the lumbosacral celia ction is noted Impression: Intraprocedure fluoroscopy as above.
[2020-04-24] MEDS ORDERED: Phenazopyridine HCl 97.5 MG TABLET ONE ×2 (10:17→10:18)
[2020-04-24] MEDS ORDERED: Oxybutynin 5 MG TAB ONE (10:18)
--- NOTE | 2020-04-24 10:34 | OP ---
DATE OF PROCEDURE: 04/24/2020 PREOPERATIVE DIAGNOSES: 1. A 59-year-old male with recurrent kidney stone, presents with left distal ureteral calculi with non-progression measuring 6 mm. 2. Nonobstructing punctate renal lithiasis x4. 3. Multiple right nonobstructing renal lithiasis: About 4 to 5 punctate, largest in the right kidney about 5 mm. POSTOPERATIVE DIAGNOSES: 1. A 59-year-old male with recurrent kidney stone, presents with left distal ureteral calculi with non-progression measuring 6 mm. 2. Nonobstructing punctate renal lithiasis x4. 3. Multiple right nonobstructing renal lithiasis: About 4 to 5 punctate, largest in the right kidney about 5 mm. PROCEDURES PERFORMED: Cystoscopy, bilateral retrograde pyelogram, left 6 x 26 double-J ureteral stent on Dangler, rigid ureteroscopy, laser lithotripsy, basket extraction of stone debris. ANESTHESIA: General. COMPLICATIONS: None apparent. DISPOSITION: To recovery room in stable condition. SPECIMEN: Stone for chemical analysis. INDICATIONS FOR PROCEDURE AND HISTORY: Mr. Harvey is a pleasant 59-year-old male, well known to me with history of recurrent kidney stone. He had an annual visit with me scheduled for April, however, provided a work-in appointment and he presented with hematuria and left flank pain. CT demonstrated a 6-mm left midureteral calculi with hydronephrosis and desires to proceed with ureteroscopy and laser lithotripsy. Morning of the surgery, he relates that he has vague right flank pain as well, therefore I advised regarding bilateral retrograde pyelogram and addressing right ureter if evidence of obstructing stone. We will proceed with treating his left ureteral stone as planned. On KUB this morning, there is some distal progression of the stone to the level of the mid sacrum. He has persistent discomfort. Risks and complications of the procedure were reviewed including, but not limited to, bleeding, pain, infection, injury to adjacent organs, urosepsis, ureteral stricture formation was discussed with him in detail and he desires to proceed. DESCRIPTION OF PROCEDURE: After an informed consent was signed, the patient was taken to the operating room, placed in a dorsal lithotomy position with the genital area prepped and draped in the usual surgical sterile fashion. Bilateral PAULIE hose, SCDs, and broad-spectrum antibiotics were provided. At this time, a cystoscope was passed, which demonstrated as previous bilobar hyperplasia of the prostate moderately obstructing with no evidence of intravesical median lobe. The UOs are about 3 to 4 mm proximal to the bladder neck with no evidence of bladder calculi. There was no evidence of intravesical median lobe. At this time, we performed a right retrograde pyelogram intubating the right UO with a 5-Libyan open-ended catheter, which demonstrated no evidence of ureteral filling defect, hydronephrosis. There was prompt excretion of contrast noted from the right side. Fluoroscopy as well as preop KUB demonstrated multiple calcific density consistent with his recent CAT scan. We then paid our attention to the left ureter, injecting contrast into the left kidney as the stone was difficult to visualize on fluoroscopy. There was a filling defect consistent with an obstructing stone as contrast was somewhat difficult to opacify proximal to the ureteral calculi. A 0.035 Sensor wire was passed to the left upper pole without significant issues and a rigid ureteroscope was passed without resistance. Stone was easily engaged and using 273 micron laser fiber at 1.6 joules, we fragmented the stone into multiple fragments. Using a Zero Tip Nitinol basket, we extracted all stone fragments atraumatically. A 6 x 26 double-J ureteral stent was then passed over the guidewire and the guidewire was subsequently removed. Good coil was seen in the kidney and the bladder and Dangler was left in situ as he had endoscopic clearance of his ureteral calculi. The bladder was completely emptied and he is to continue his Flomax, discharged with ciprofloxacin for 7 days, Azo p.r.n. He has been previously provided [place], which he has plenty. I did also provide tramadol, so he can deescalate to tramadol if needed. Oxybutynin 5 mg one p.o. q.8 hours p.r.n. for bladder spasm. He will return to clinic on May 01 at 9:15 for nurse visit, stent pull on Dangler. He has his annual visit with me as planned on May 15 for routine followup. Job ID: [id number] [facility]
[2020-04-24] MEDS ORDERED: Ketorolac Tromethamine 30 MG/ML VIAL ONE (11:06)
[2020-04-24] MEDS ORDERED: PROPOFOL 200 MG/20 ML VIAL ONE (11:06)
[2020-04-24] MEDS ORDERED: Rocuronium Bromide 10 MG/ML (10ML VIAL) ONE (11:06)
[2020-04-24] MEDS ORDERED: Lidocaine 1% PF 5 ML VIAL ONE (11:06)
[2020-04-24] MEDS ORDERED: Dexamethasone 20 MG/5 ML VIAL ONE (11:06)
[2020-04-24] MEDS ORDERED: EPHEDRINE 25 MG/5 ML SYRINGE ONE (11:06)
[2020-04-24] MEDS ORDERED: Ondansetron PF 4 MG/2 ML Vial ONE (11:06)
[2020-04-24] MEDS ORDERED: Glycopyrrolate 0.2 MG/ML 5 ML SYRINGE ONE (11:06)
[2020-04-24] MEDS ORDERED: Succinylcholine Chloride 20 MG/ML 10 ml SYRINGE FS ONE (11:06)
== END 2020-04-24 11:45 | disposition home or self-care (01) ==
LOC: SDC 05:54
PROVIDERS: ATTEND Urology
PROC: 0TC78ZZ Extirpation of Matter from Left Ureter, Via Natural or Artificial Opening Endoscopic (ICD-10-PCS; principal; 2020-04-24)
PROC: 0TC08ZZ Extirpation of Matter from Right Kidney, Via Natural or Artificial Opening Endoscopic (ICD-10-PCS; principal; 2020-04-24)
DX: N20.2 Calculus of kidney with calculus of ureter (principal); N40.1 Benign prostatic hyperplasia with lower urinary tract symptoms; R35.0 Frequency of micturition; Z87.891 Personal history of nicotine dependence; Z88.0 Allergy status to penicillin; Z88.2 Allergy status to sulfonamides; Z88.5 Allergy status to narcotic agent
CPT/HCPCS: 74018; 74420; 82365; 88300; J1100; J1885; J1956; J2001; J2405; J2704; J3010; Q9967

== ENCOUNTER 2020-11-14 09:30 | Outpatient (CLI) | payer OTHER ==
--- NOTE | 2020-11-14 14:04 | NM ---
Radionucleotide three-phase bone scan HISTORY: Hip pain. Evaluate for prosthetic complication. FINDINGS: 3 phase imaging shows no abnormal uptake associated with either hip. Photopenic defects fro m metallic prostheses. Heterogeneously increased uptake at the acromioclavicular joint with the appearance of degenerative c hanges. No suspicious uptake on delayed whole-body images. IMPRESSION : No evidence of hip/prosthetic pathology.
== END 2020-11-14 09:31 | disposition home or self-care (01) ==
LOC: NM 09:30
PROVIDERS: ATTEND Orthopaedic Surgery
DX: T84.011A Broken internal left hip prosthesis, initial encounter (principal)
CPT/HCPCS: 78315; A9503